=== PATIENT | male | born 1950 ===

== ENCOUNTER 2019-04-05 19:59 | Emergency (ER) | payer MEDICARE ==
[2019-04-05] MEDS ORDERED: HYDROcodone/Acetaminophen 10/325 mg Tablet ONE (20:17)
[2019-04-05] MEDS ORDERED: Ibuprofen 800 MG TAB ONE (20:17)
--- NOTE | 2019-04-05 22:07 | RAD ---
LEFT KNEE TWO VIEWS: 04/05/19 There is a large amount of soft tissue swelling anterior to the knee. There appears to be a large hernando unt of joint fluid as well. The possibility of an internal derangement is raised. No fracture was pre sent. IMPRESSION: Tremendous soft tissue swelling. POS: HOME
== END 2019-04-05 20:50 | disposition home or self-care (01) ==
LOC: BURERS 19:59
DX: M23.92 Unspecified internal derangement of left knee (principal); M25.462 Effusion, left knee; K21.9 Gastro-esophageal reflux disease without esophagitis; I10 Essential (primary) hypertension; E78.00 Pure hypercholesterolemia, unspecified; E78.5 Hyperlipidemia, unspecified; Z79.899 Other long term (current) drug therapy; W10.9XXA Fall (on) (from) unspecified stairs and steps, initial encounter